=== PATIENT | female | born 1965 | race Two or more races ===

== ENCOUNTER 2017-08-16 09:06 | Outpatient (CLI) | payer BC | END 2017-08-16 23:59 | disposition home or self-care (01) | LOC: US 09:06 → EDBD 09:06 → US 23:59 | PROVIDERS: ATTEND Legal Medicine | DX: K74.69 Other cirrhosis of liver (principal); N28.1 Cyst of kidney, acquired | CPT/HCPCS: 76700-TC ==

== ENCOUNTER → 2022-01-19 | Outpatient (CLI) | payer BC | END | disposition home or self-care (01) | LOC: MRI 12:38 | PROVIDERS: ATTEND Legal Medicine | DX: S52.501A Unspecified fracture of the lower end of right radius, initial encounter for closed fracture (principal); X58.XXXA Exposure to other specified factors, initial encounter; Y93.89 Activity, other specified; Y92.89 Other specified places as the place of occurrence of the external cause; Y99.8 Other external cause status | CPT/HCPCS: 73221-TC ==